=== PATIENT | female | born 1990 | race Caucasian/White ===

== ENCOUNTER 2024-05-14 16:12 | Emergency (ER) | payer OTHER ==
[~2024-05-14] VITALS: Ht 162.6 cm; Wt 118.1 kg
[2024-05-14 16:21] VITALS: BP 138/90; PULSE 92; RESP 18; TEMP 97.7; O2SAT 98
== END 2024-05-14 17:20 | disposition home or self-care (01) ==
LOC: MED 16:12
DX: O26.892 Other specified pregnancy related conditions, second trimester (principal); Z3A.17 17 weeks gestation of pregnancy
CPT/HCPCS: 99284